=== PATIENT | male | born 2000 | race Caucasian/White ===

== ENCOUNTER 2021-12-13 09:05 | Emergency (ER) | payer OTHER, SELFPAY ==
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
[2021-12-13 09:42] VITALS: BP 132/78; PULSE 83; RESP 18; TEMP 36.8; O2SAT 100
--- NOTE | 2021-12-13 09:43 | PC.NURSE ---
PA at bedside to assess pt. Patient changed into safety scrubs and all belongings secured. Patient calm and cooperative.
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
[2021-12-13 09:58] LABS: Basophils Absolute Auto 0.1 K/mm3 (0.0-0.1); Eosinophils Absolute Auto 0.1 K/mm3 (0-0.3); Eosinophils Percent Auto 0.6 % (0-4.4); Hematocrit 49.5 % (42.0-52.0); Hemoglobin 16.2 g/dL (14.0-18.0); Immature Granulocyte Absolute 0.06 K/mm3 (0.00-0.031); Immature Granulocyte Percent A 0.6 % (0-0.5); Lymphocytes Absolute Auto 1.83 K/mm3 (0.9-3.2); Mean Corpuscular HGB Conc 32.7 g/dl (32-36); Mean Corpuscular Hemoglobin 31.3 pg (26-34); Mean Corpuscular Volume 95.6 fl (80-100); Mean Platelet Volume 10.1 fl (7.4-10.4); Monocytes Absolute Auto 0.7 K/mm3 (0.1-0.6); Neutrophils Absolute Auto 7.4 K/mm3 (1.3-6.7); Neutrophils Percent Auto 72.8 % (45.5-73.1); Platelet Count Result 334 k/mm3 (150-375); Red Blood Count 5.18 M/mm3 (4.6-6.20); Red Cell Distribution Width 12.1 % (11.5-14.5); White Blood Count 10.2 K/mm3 (4.5-10.0)
--- NOTE | 2021-12-13 10:07 | PC.NURSE ---
Patient off unit to Radiology.
[2021-12-13 10:08] LABS: Appearance Urine Clear (Clear); Bilirubin Urine 1+ (Negative); Blood Urine Negative (Negative); Color Urine Yellow (Yellow); Glucose Urine UA Negative (Negative); Ketones Urine Negative (Negative); Leukocyte Esterase Ur Negative LEU/UL (Negative); Nitrate Urine Negative (Negative); Protein Urine 2+ mg/dL (Negative); Specific Grav Ur 1.025 (1.001-1.035)
[2021-12-13 10:10] LABS: Alanine Aminotransferase 23 U/L (4-50); Albumin Level 5.4 g/dL (3.5-5.1); Alkaline Phosphatase 75 U/L (38-126); Anion Gap 11 mmol/L (8-16); Aspartate Amino Transferase 28 U/L (17-59); Bilirubin,Total 1.1 mg/dL (0.2-1.3); Blood Urea Nitrogen 12 mg/dL (9-20); Calcium 9.3 mg/dL (8.4-10.2); Carbon Dioxide 27 mmol/L (22-30); Chloride 102 mmol/L (98-107); Estimated CRCL calculation 99 ml/min; Estimated Glomerular Filt Rate > 60; Glucose 132 mg/dL (65-110); Potassium 4.2 mmol/L (3.4-5.0); Sodium 140 mmol/L (137-145)
[2021-12-13 10:17] LABS: Mucus Urine Few /lpf; WBC Urine 0-3 /hpf
[2021-12-13 10:20] LABS: Add Urine Microscopic? YES
--- NOTE | 2021-12-13 10:45 | PC.NURSE ---
When this RN questioned patient about suicidal ideation the patient states that he was confused by the question and that he his not currently having suicidal thought but has had them within the last month. The patient reports that several weeks ago he was having fleeting thoughts of suicide without any plans. He reports that he has never been diagnosed with depression or any other psychiatric disorders. The patient has never been treated for suicidal thoughts or depression and is not currently taking any medications. The patient reports that he has an appointment with a counselor through his school tomorrow. Patient's parents are bedside. Due to low risk on [place] [facility] Screening patient may have belongings and does not require sitter. Confirmed with charger. Patient calm and cooperative with care. Awaiting medical clearance. Will continue to monitor.
--- NOTE | 2021-12-13 11:10 | PC.NURSE ---
Patient report given to ART Shahid. All questions answered and care of patient transferred.
[2021-12-13 11:21] LABS: Ethanol < 10 mg/dL (<10)
[2021-12-13 11:58] LABS: Amphetamine Screen Urine Negative (Negative); Barbiturate Screen Urine Negative (Negative); Benzodiazepines Screen Urine Negative (Negative); Cannabinoid Screen Urine Negative (Negative); Cocaine Screen Urine Negative (Negative); Methadone Screen Urine Negative (Negative); Opiate Screen Urine Negative (Negative); Phencyclidine Screen Urine Negative (Negative)
[2021-12-13 14:20] VITALS: BP 130/74; PULSE 80; RESP 16; O2SAT 98
== END 2021-12-13 14:20 | disposition home or self-care (01) ==
PROVIDERS: Physician Assistant; Emergency Provider Emergency Medicine; PCP Internal Medicine Geriatric Medicine
DX: S49.91XA Unspecified injury of right shoulder and upper arm, initial encounter (principal); R20.2 Paresthesia of skin; R45.851 Suicidal ideations; V48.5XXA Car driver injured in noncollision transport accident in traffic accident, initial encounter
CPT/HCPCS: 36415; 70450; 71046; 72125; 72170; 73030; 80053; 80307; 81001; 84443; 85025; 99284

== ENCOUNTER 2022-05-23 10:19 | Outpatient (CLI) | payer OTHER, SELFPAY ==
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
== END 2022-05-23 10:20 | disposition home or self-care (01) ==
PROVIDERS: PCP Internal Medicine Geriatric Medicine; Visit Provider Internal Medicine Geriatric Medicine
DX: M79.671 Pain in right foot (principal); M79.674 Pain in right toe(s)
CPT/HCPCS: 73630

== ENCOUNTER 2023-07-11 06:33 | Outpatient (CLI) | payer OTHER, SELFPAY ==
--- NOTE | ~2023-07-11 | MR_ITS ---
MRI of the right shoulder Technique: Axial proton-density fat-sat images, coronal proton density fat-sat and T2 fat-sat images, and sagittal T1-weighted and T2 fat-sat images were acquired. Clinical History: Pain Findings: There is mild AC joint degenerative change, with marrow edema at the distal clavicle. Corac oclavicular, coracoacromial, and coracohumeral ligament are intact. Supraspinatus and infraspinatus tendons are intact, without partial or full-thickness tear. Subscapul zach tendon is intact. Tendon of the long head of the biceps is intact. No labral tear identified. Inferior glenohumeral ligament is intact. No degenerative change or effusion of the glenohumeral join t. No fluid distention of the subacromial/subdeltoid bursa. No muscle atrophy or edema. Impression: Marrow edema of the distal clavicle, with mild surrounding soft tissue edema/periostitis. 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 Reviewed, dictated and finalized at location . [employer] Impression: Marrow edema of the distal clavicle, with mild surrounding soft tissue edema/pe riostitis. Findings could reflect early stage of distal clavicular osteolysis.
== END 2023-07-11 06:34 | disposition home or self-care (01) ==
PROVIDERS: PCP Internal Medicine Geriatric Medicine; Visit Provider Internal Medicine Geriatric Medicine
DX: R22.31 Localized swelling, mass and lump, right upper limb (principal)
CPT/HCPCS: 73221